=== PATIENT | female | born 1975 | race Caucasian/White ===

== ENCOUNTER 2024-12-25 16:02 | Inpatient (IN) | payer OTHER ==
[~2024-12-25] VITALS: Ht 160 cm; Wt 98.0 kg
[2024-12-25 16:45] VITALS: BP 103/62; PULSE 80; RESP 18; TEMP 98.3; O2SAT 96
[2024-12-25 19:50] VITALS: BP 124/75; PULSE 83; RESP 18; TEMP 98.4; O2SAT 97
[2024-12-25] MEDS: HydrALAZINE HCL 25 MG TABLET PO SCH (19:58)
[2024-12-25] MEDS: ETHYL ALCOHOL 62% ANTISEPTIC NASAL SANITIZER 0.6 ML AMPUL NASAL SCH (19:59)
[2024-12-25 22:16] VITALS: O2SAT 97
[2024-12-26 07:29] LABS: BASOPHILS % (AUTO) 0.4 % (0.0-2.0); EOSINOPHILS % (AUTO) 4.4 % (1.0-6.0); HEMATOCRIT 40.9 % (36-46); HEMOGLOBIN 13.7 g/dL (12.0-16.0); LYMPHOCYTES # (AUTO) 2.3 K/uL (1.0-4.8); LYMPHOCYTES % (AUTO) 32.7 % (22.0-44.0); MEAN CORPUSCULAR HEMOGLOBIN 26.8 pg (26.0-34.0); MEAN CORPUSCULAR HGB CONC 33.4 G/dL (31.0-37.0); MEAN CORPUSCULAR VOLUME 80 fL (80-100); MONOCYTES # (AUTO) 0.6 K/uL (0.1-1.0); MONOCYTES % (AUTO) 8.7 % (2.0-9.0); NEUTROPHILS # (AUTO) 3.8 K/uL (1.8-7.7); NEUTROPHILS % (AUTO) 53.8 % (40.0-70.0); PLATELET COUNT (AUTO) 226 K/uL (150-450); RED CELL DISTRIBUTION WIDTH 15.8 % (11.5-14.5); WHITE BLOOD COUNT (AUTO) 7.1 K/uL (4.5-11.0)
[2024-12-26 07:42] LABS: ALANINE AMINOTRANSFERASE 23 U/L (12-78); ALBUMIN 3.2 g/dL (3.4-5.0); ALKALINE PHOSPHATASE 82 U/L (46-116); ANION GAP 9 mmol/L (8-16); ASPARTATE AMINOTRANSFERASE 12 U/L (15-37); BILIRUBIN,TOTAL 0.3 mg/dL (0.1-1.0); CALCIUM, TOTAL 8.7 mg/dL (8.8-10.5); CARBON DIOXIDE 25 mmol/L (22-29); CHLORIDE 105 mmol/L (98-107); GLOMERULAR FILTR. RATE CALC > 60 mL/min (>60); GLUCOSE,RANDOM 108 mg/dL (70-110); POTASSIUM 4.1 mmol/L (3.5-5.1); SODIUM SERUM 139 mmol/L (136-145); TOTAL PROTEIN, SERUM 7.2 g/dL (6.4-8.2); UREA NITROGEN, BLOOD 20 mg/dL (7-18)
[2024-12-26 08:00] VITALS: BP 115/64; PULSE 70; RESP 18; TEMP 97.7; O2SAT 99
[2024-12-26 09:00] VITALS: BP 135/78; PULSE 91; RESP 18; O2SAT 100
[2024-12-26] MEDS: LISINOPRIL 20 MG TABLET PO SCH (09:23)
[2024-12-26 10:00] VITALS: BP 125/66; PULSE 85; RESP 17; O2SAT 100
[2024-12-26] MEDS: AmLODIPine BESYLATE 10 MG TABLET PO SCH (10:06)
[2024-12-26 19:45] VITALS: BP 122/68; PULSE 98; RESP 18; TEMP 98; O2SAT 97
[2024-12-26 22:06] VITALS: O2SAT 97
[2024-12-27 08:00] VITALS: BP 128/65; PULSE 73; RESP 18; TEMP 97.6; O2SAT 96
[2024-12-27 10:00] VITALS: BP 125/69; PULSE 83
[2024-12-27] MEDS: FLUoxetine HCL 10 MG CAPSULE PO SCH (10:17)
[2024-12-27 11:03] VITALS: O2SAT 96
[2024-12-27 16:30] VITALS: BP 124/67; PULSE 78
[2024-12-27 20:30] VITALS: BP 126/77; PULSE 85; RESP 18; TEMP 97.7; O2SAT 96
[2024-12-27] MEDS: MELATONIN 3 MG TABLET PO PRN (20:38)
[2024-12-28] VITALS (8 sets, daily range): BP systolic 99–139; BP diastolic 55–99; PULSE 74–93; RESP 18–19; TEMP 97.9–98.2; O2SAT 96–98
[2024-12-29 08:00] VITALS: BP 149/94; PULSE 80; RESP 19; TEMP 97.8; O2SAT 98
[2024-12-29] MEDS: INFLUENZA VIRUS VACCINE TVS (6MO+) 2024-25/PF 45 MCG/0.5 ML SYRINGE IM. ONE (14:40)
[2024-12-29 14:50] VITALS: BP 120/67; RESP 18; O2SAT 98
[2024-12-29 20:00] VITALS: BP 115/73; PULSE 87; RESP 19; TEMP 98.1; O2SAT 98
[2024-12-30] MEDS ORDERED: LISI-894 PO (01:55)
[2024-12-30] MEDS ORDERED: AMLO-258 PO (01:55)
[2024-12-30] MEDS ORDERED: HYDR25TA84 PO (01:55)
[2024-12-30] MEDS ORDERED: FLUO-342 PO (01:55)
[2024-12-30 08:05] VITALS: BP 136/85; PULSE 73; RESP 19; TEMP 97.6; O2SAT 98
[2024-12-30 11:00] VITALS: O2SAT 98
[2024-12-30 16:08] VITALS: BP 127/68; PULSE 78; RESP 18; O2SAT 98
[2024-12-30 20:00] VITALS: BP 124/64; PULSE 86; RESP 19; TEMP 97.5; O2SAT 99
[2024-12-31 08:05] VITALS: BP 137/67; PULSE 78; RESP 18; TEMP 98.1; O2SAT 98
[2024-12-31 16:25] VITALS: BP 123/64; PULSE 72; RESP 18; O2SAT 98
[2024-12-31 17:38] VITALS: O2SAT 98
[2024-12-31 20:00] VITALS: BP 115/68; PULSE 82; RESP 18; TEMP 98; O2SAT 100
[2025-01-01] MEDS: ACETAMINOPHEN 500 MG TABLET PO PRN (07:59)
[2025-01-01 08:00] VITALS: BP 124/81; PULSE 78; RESP 18; TEMP 98; O2SAT 98
[2025-01-01 09:16] VITALS: BP 124/81; PULSE 78; RESP 18; TEMP 98; O2SAT 98
[2025-01-01 15:56] VITALS: BP 113/69; PULSE 86; RESP 18
[2025-01-01 20:00] VITALS: BP 116/78; PULSE 83; RESP 18; TEMP 98.3; O2SAT 97
[2025-01-02 07:41] VITALS: BP 78/68; PULSE 106; RESP 18; TEMP 97.8; O2SAT 98
[2025-01-02 08:00] VITALS: BP 129/79; PULSE 69; RESP 18; TEMP 97.8; O2SAT 98
[2025-01-02 15:50] VITALS: BP 119/71; PULSE 79; RESP 18
[2025-01-02] MEDS: PNEUMOCOCCAL VACCINE POLYVALENT 0.5 ML SYRINGE [PPSV23] IM. ONE (17:16)
[2025-01-02 20:00] VITALS: BP 107/76; PULSE 71; RESP 18; TEMP 98.2; O2SAT 100
[2025-01-02 20:30] VITALS: BP 138/77; PULSE 73; RESP 18; O2SAT 98
[2025-01-03 08:00] VITALS: BP 132/83; PULSE 74; RESP 18; TEMP 98.3; O2SAT 96
[2025-01-03 16:04] VITALS: BP 90/66; PULSE 72; RESP 18; O2SAT 97
[2025-01-03 19:58] VITALS: BP 122/73; PULSE 80; RESP 18; TEMP 97.7; O2SAT 98
[2025-01-04 01:52] VITALS: O2SAT 98
[2025-01-04] MEDS ORDERED: HYDR25TA84 PO (07:41)
[2025-01-04] MEDS ORDERED: FLUO-342 PO (07:41)
[2025-01-04] MEDS ORDERED: AMLO-258 PO (07:41)
[2025-01-04] MEDS ORDERED: LISI-894 PO (07:41)
[2025-01-04 08:36] VITALS: BP 117/72; PULSE 74; RESP 18; TEMP 98
[2025-01-04 09:50] VITALS: O2SAT 96
[2025-01-04 20:00] VITALS: BP 103/63; PULSE 69; RESP 18; TEMP 98; O2SAT 99
[2025-01-05 08:00] VITALS: BP 113/72; PULSE 72; RESP 18; TEMP 98; O2SAT 96
[2025-01-05 10:00] VITALS: O2SAT 96
== END 2025-01-05 14:05 | disposition home health service (06) | DRG 58 ==
LOC: 2WR 16:38
PROVIDERS: ADMIT Physical Medicine & Rehabilitation; ATTEND Physical Medicine & Rehabilitation
DX: I69.354 Hemiplegia and hemiparesis following cerebral infarction affecting left non-dominant side (principal); E46 Unspecified protein-calorie malnutrition; E66.9 Obesity, unspecified; I10 Essential (primary) hypertension; R41.89 Other symptoms and signs involving cognitive functions and awareness; Z74.09 Other reduced mobility; G47.33 Obstructive sleep apnea (adult) (pediatric); F17.210 Nicotine dependence, cigarettes, uncomplicated; F32.A Depression, unspecified; R53.1 Weakness; R51.9 Headache, unspecified; G31.84 Mild cognitive impairment of uncertain or unknown etiology; F41.9 Anxiety disorder, unspecified; R62.7 Adult failure to thrive; R73.03 Prediabetes; Z82.49 Family history of ischemic heart disease and other diseases of the circulatory system; Z79.899 Other long term (current) drug therapy; Z68.38 Body mass index [BMI] 38.0-38.9, adult
CPT/HCPCS: 80053; 85025; 87081; 90686; 90732; 92507; 92523; 93970; 97110; 97112; 97116; 97150; 97163; 97167; 97530; 97535; 99366